=== PATIENT | male | born 1990 | race Caucasian/White ===

== ENCOUNTER 2024-05-07 15:12 | Emergency (ER) | payer OTHER ==
[~2024-05-07] VITALS: Ht 180.3 cm; Wt 68.0 kg
[~2024-05-07 15:12] MED LIST: ZYPREXA513 PO
[2024-05-07] MEDS ORDERED: ZYPREXA513 PO (15:40)
== END 2024-05-07 15:41 | disposition home or self-care (01) ==
LOC: ER 15:12
DX: Z76.0 Encounter for issue of repeat prescription (principal); Z79.899 Other long term (current) drug therapy
CPT/HCPCS: 99281

== ENCOUNTER 2024-07-29 16:15 | Emergency (ER) | payer OTHER ==
[~2024-07-29] VITALS: Ht 177.8 cm; Wt 63.5 kg
[2024-07-29] MEDS ORDERED: OLAN10 PO (16:56)
[2024-07-29] MEDS ORDERED: SUBOXONE 4 MG SL (16:56)
[2024-07-29] MEDS ORDERED: NARCAN4 M1 (16:56)
== END 2024-07-29 17:15 | disposition home or self-care (01) ==
LOC: ER 16:15
DX: Z76.0 Encounter for issue of repeat prescription (principal); F11.90 Opioid use, unspecified, uncomplicated; Z79.899 Other long term (current) drug therapy; Z86.59 Personal history of other mental and behavioral disorders
CPT/HCPCS: 99284

== ENCOUNTER 2024-07-30 00:15 | Emergency (ER) | payer OTHER ==
[~2024-07-30] VITALS: Ht 177.8 cm; Wt 59.0 kg
[~2024-07-30 00:15] MED LIST changes: +NARCAN4 M1; +OLAN10 PO; +SUBOXONE 4 MG SL
[2024-07-30 01:23] LABS: BASOPHILS ABSOLUTE AUTO 0.05 K/mm3 (0.00-0.23); BASOPHILS PERCENT AUTO 0 % (0-2); EOSINOPHILS ABSOLUTE AUTO 0.19 K/mm3 (0.00-0.68); EOSINOPHILS PERCENT AUTO 2 % (0-6); Hematocrit 38.8 % (37.0-53.0); Hemoglobin 13.7 g/dL (13.5-17.5); IMMATURE GRAN ABSOLUTE AUTO 0.05 K/mm3 (0.00-0.10); IMMATURE GRAN PERCENT AUTO 0 % (0-1); LYMPHOCYTES ABSOLUTE AUTO 3.41 K/mm3 (0.84-5.20); LYMPHOCYTES PERCENT AUTO 28 % (21-46); MONOCYTES ABSOLUTE AUTO 0.87 K/mm3 (0.16-1.47); MONOCYTES PERCENT AUTO 7 % (4-13); Mean Corpuscular HGB 31.4 pg (26.0-34.0); Mean Corpuscular HGB Conc 35.3 g/dL (31.5-36.5); Mean Corpuscular Volume 89 fL (80-100); Mean Platelet Volume 9.8 fL (9.1-12.4); NEUTROPHILS ABSOLUTE AUTO 7.82 K/mm3 (1.96-9.15); NEUTROPHILS PERCENT AUTO 63 % (41-73); Platelet Count 227 K/mm3 (150-400); RDW Standard Deviation 39.2 fL (35.1-46.3); Red Blood Cell Count 4.36 M/mm3 (4.30-5.90); White Blood Cell Count 12.39 K/mm3 (4.00-11.30)
[2024-07-30 01:49] LABS: Alanine Aminotransfer (ALT/SGP 19 U/L (12-78); Albumin/Globulin Ratio 1.4 (0.8-1.8); Alk Phos 66 U/L (50-136); Anion Gap 9 mmol/L (3-11); Aspartate Aminotrans (AST/SGOT 15 U/L (12-37); Bilirubin, Total 0.3 mg/dL (0.1-1.0); Blood Urea Nitrogen 13 mg/dL (8-24); Bun/Creatinine Ratio 13.9 (12.0-20.0); CO2, Blood 27 mmol/L (21-32); Calcium, Blood 8.8 mg/dL (8.5-10.1); Chloride, Blood 108 mmol/L (98-108); Creatinine, Blood 0.94 mg/dL (0.60-1.20); Globulin, Blood 2.8 g/dL (2.2-4.0); Glomerular Filtration Rate 110 (60-); Glucose, Blood 91 mg/dL (70-99); Potassium, Blood 4.2 mmol/L (3.5-5.5); Sodium, Blood 140 mmol/L (136-145); Total Protein, Blood 6.8 g/dL (6.4-8.2)
[2024-07-30 01:50] LABS: Ethanol (Alcohol), Blood, Med <3 mg/dL
[2024-07-30 02:04] LABS: Source, Urine Clean Catch
[2024-07-30 02:20] LABS: Bilirubin, Urine Neg (Neg); Blood, Urine Neg (Neg); Glucose Qualitative, Urine Neg (Neg); Ketones, Urine 1+ (Neg); Leukocyte Esterase, Urine Neg (Neg); Nitrite, Urine Neg (Neg); Protein, Urine 1+ (Neg); Specific Gravity, Urine 1.025 (1.003-1.022); Urobilinogen, Urine 1+ (Normal)
[2024-07-30 02:27] LABS: Appearance, Urine Hazy (Clear); Color, Urine Yellow (P-Yellow)
[2024-07-30 02:28] LABS: Bacteria Few /hpf; Red Blood Cells, Urine 0-2 /hpf (0-2); Squamous Epithelial Cells Few /hpf (Few); White Blood Cells, Urine 0-2 /hpf (0-5)
[2024-07-30 02:29] LABS: Calcium Oxalate Crystals Many /hpf
[2024-07-30 02:38] LABS: U Amphetamine Screen DETECTED; U Barbituate Screen Not Detected; U Benzodiazapine Screen Not Detected; U Buprenorphine Screen DETECTED; U Cannabinoids Screen DETECTED; U Cocaine Screen Not Detected; U Methadone Screen Not Detected; U Methamphetamine Screen DETECTED; U Opiates Screen Not Detected; U Oxycodone Screen Not Detected; U Phencyclidine Screen Not Detected
== END 2024-07-30 04:00 | disposition home or self-care (01) ==
LOC: ER 00:15
PROVIDERS: Student in an Organized Health Care Education/Training Program
DX: R44.0 Auditory hallucinations (principal); R44.1 Visual hallucinations; F15.90 Other stimulant use, unspecified, uncomplicated; F12.10 Cannabis abuse, uncomplicated; Z79.899 Other long term (current) drug therapy
CPT/HCPCS: 70450; 80053; 80320; 81001; 85025; 93005; 93010; 99284-25